=== PATIENT | female | born 1985 | race Caucasian/White ===

== ENCOUNTER → 2017-11-26 16:30 | Outpatient (CLI) | payer OTHER, SELFPAY ==
[2017-11-27 18:43] LABS: Strep Grp B PCR POS for Grp B Strep
== END ==
PROVIDERS: PCP Obstetrics & Gynecology; Visit Provider Obstetrics & Gynecology
DX: Z34.83 Encounter for supervision of other normal pregnancy, third trimester (principal)
CPT/HCPCS: 87653

== ENCOUNTER 2017-12-12 00:50 | Inpatient (IN) | payer OTHER, SELFPAY ==
[2017-12-12] MEDS: LACTATED RINGERS 1,000 ML 100 ML IV (01:30)
[2017-12-12] MEDS: PENICILLIN G POTASSIUM 5,000,000 UNIT in DEXTROSE 5% IN WATER 250 ML IV (01:35)
[2017-12-12 02:04] LABS: Add Manual Diff / Slide Review NO; Basophils Percent Auto 0.5 % (0-2); Eosinophils Percent Auto 1.3 % (2-4); Hematocrit 37.2 % (36-46); Hemoglobin 12.7 g/dL (12.0-16.0); Lymphocytes Percent Auto 19.1 % (25-40); Mean Corpuscular HGB Conc 34.1 % (30-36); Mean Corpuscular Hemoglobin 30.2 PG (26-34); Mean Corpuscular Volume 88.4 fL (80-100); Monocytes Percent Auto 9.4 % (3-14); Neutrophils Percent Auto 69.7 % (50-75); Platelet Count 227 X10^3/uL (150-400); Red Cell Distribution Width 13.4 % (11.6-14.8); White Blood Cell Count 9.1 X10^3/uL (4.5-11.0)
[2017-12-12 02:05] LABS: Neutrophils Absolute Auto 6400 /uL (3000-5900)
[2017-12-12 03:54] VITALS: BP 147/86
[2017-12-12] MEDS: PENICILLIN G POTASSIUM 3,000,000 UNIT/50 ML FROZ.PIGGY 100 UNIT IV ×2 (04:28→08:45)
--- NOTE | 2017-12-12 13:52 | PM.OBHP.1 ---
OB HPI History of Present Illness Chief complaint: Evaluation of Labor Narrative: Isabella Carroll is a 32-year-old G 2 P1 who comes in at 38 1/7 weeks gestation with spontaneous rupture of membranes on December 11 at approximately 11:00 p.m. patient did come in for antibiotics that she was GBS positive. Maternal blood type was AB positive, antibody negative, serology nonreactive, rubella immune, gonorrhea and Chlamydia negative, hepatitis B negative, hepatitis-C negative, GBS positive. Good care. Evaluation Evaluation Laboratory results: Laboratory Tests 12/12/17 12/12/17 01:35 01:35 WBC 9.1 RBC 4.20 Hgb 12.7 Hct 37.2 MCV 88.4 MCH 30.2 MCHC 34.1 RDW 13.4 Plt Count 227 Neut % (Auto) 69.7 Lymph % (Auto) 19.1 L Tra[place] % (Auto) 9.4 Eos % (Auto) 1.3 L Baso % (Auto) 0.5 Neut # (Auto) 6400 H Blood Type AB Positive Antibody Screen Negative [facility] Medical History Vaginal delivery (Acute) Social History Smoking Status: Never smoker Meds Home Medications Medication Instructions Recorded Confirmed Type 1 tab PO DAILY 12/12/17 12/12/17 History Allergies Allergy/AdvReac Type Severity Reaction Status Date / Time cephalexin [From Keflex] Allergy Mild Rash Verified 12/12/17 01:41 Review of Systems Review of Systems All systems reviewed & are unremarkable except as noted in HPI and below Exam Vital Signs (past 8 hours): GENERAL: Well-developed well-nourished woman in no acute distress. HEENT: Normocephalic, atraumatic, pupils equal and reactive to light and accommodation. Extraocular movements are intact. Tympanic membranes are clear without erythema. Neck supple, no lymphadenopathy. LUNG: Clear to auscultation bilaterally. No wheeze or crackles or rhonchi. No increased work in breathing. CV: Regular rate and rhythm. No murmurs rubs or gallops. AFFECT: Alert and oriented X3. Conversational and appropriate. Sterile vaginal exam: Not performed heart rate category 1. Contractions: Irregular to every 5-7 minutes Objective Labs Result Diagrams: 12/12/17 01:35 Labs: Laboratory Results - last 24 hr 12/12/17 12/12/17 01:35 01:35 WBC 9.1 RBC 4.20 Hgb 12.7 Hct 37.2 MCV 88.4 MCH 30.2 MCHC 34.1 RDW 13.4 Plt Count 227 Neut % (Auto) 69.7 Lymph % (Auto) 19.1 L Traill % (Auto) 9.4 Eos % (Auto) 1.3 L Baso % (Auto) 0.5 Neut # (Auto) 6400 H Blood Type AB Positive Antibody Screen Negative Assessment and Plan (1) Group B streptococcal infection during : Current visit: Yes Status: Acute (2) Term : Current visit: Yes Status: Acute (3) Group B Streptococcus carrier, antepartum: Current visit: Yes Status: Deleted Plan: Plan: 1. Start IV antibiotics for GBS positive status. 2. Monitor contractions. When patient becomes more active will check cervix. 3. Anticipate spontaneous vaginal delivery
--- NOTE | 2017-12-12 14:02 | PM.OBPRVD ---
Narrative: Patient is a 32-year-old who presented in after spontaneous rupture of membranes at term. Patient reports that her membranes ruptured at approximately 2330. She presented to Labor and delivery shortly thereafter to initiate GBS prophylaxis. Patient received 3 doses prior to delivery, none before rupture of membranes. Fluid clear. Patient labored without event, and at 1258 patient began stage II of labor. Patient pushed for a total of 10 min, and successfully delivered a healthy term female with Apgars of 6 and 8. Patient delivered in the knee chest position. Once delivery of the head, it was noted that the had a triple nuchal cord which was clamped and cut on the perineum. Infant was placed in maternal arms. Patient sustained minimal trauma to the perineum and no repair was required. Placenta delivered at 1:30 p.m. intact. Estimated blood loss 350 mL Patient tolerated the procedure well and infant was doing well at the time of this dictation.
[2017-12-13 06:05] LABS: Hematocrit 37.5 % (36-46); Hemoglobin 12.8 g/dL (12.0-16.0)
[2017-12-13] MEDS: DOCUSATE 250 MG CAPSULE PO (11:29)
--- NOTE | 2017-12-17 12:03 | P.DS_ITS ---
Discharge Providers Date of admission: 12/12/17 00:50 Primary care physician: Jessica Powell MD Consults: 12/12/17 13:48 Consult to Car Retarder Operator Routine Comment: Discharge provider: Jsesica Powell MD Discharge Date: 12/13/17 Summary Date Patient Seen: 12/13/17 Time Patient Seen: 07:45 Hospital Course: Patient presented with spontaneous rupture of membranes on 12/11/2017. By the morning of 12/12/2017 patient progressed in the labor. She had a spontaneous vaginal delivery without complication. Her course was unremarkable Discharge Diagnosis (1) Group B streptococcal infection during : Status: Acute (2) Term : Status: Acute (3) Group B Streptococcus carrier, antepartum: Status: Deleted Time Spent with Patient Total time spent providing and/or coordinating discharge services: Objective Labs Result Diagrams: 12/13/17 05:50 Discharge Plan Discharge Plan Patient Disposition: Home, Self-Care Discharge Med Rec/Prescriptions Prescriptions: No Action 1 tab tablet 1 tab PO DAILY RF: 0 Follow up/Referrals: Jessica Powell MD [Primary Care Provider] - 6 Weeks Provider Discharge Instructions Diet: Diet as Tolerated Activity: No intercourse Wound Care Report to your healthcare provider any signs of infection, such as:: chills, fever, increased pain and unusual drainage Visit Report/Discharge Packet Instructions: Depression Visit Report Forms: Stroke Signs & Symptoms Discharge Data Primary Care Provider: Jessica Powell Attending Provider: Jessica Powell Admit Date/Time: 12/12/17 00:50 Discharges patient from system. Discharge Date/Time: 12/13/17 13:55
== END 2017-12-13 13:55 | disposition home or self-care (01) | DRG 775 ==
PROVIDERS: Admitting Provider Family Medicine; PCP Obstetrics & Gynecology; Visit Provider Obstetrics & Gynecology
DX: O99.824 Streptococcus B carrier state complicating childbirth (principal); Z3A.38 38 weeks gestation of pregnancy; Z37.0 Single live birth
CPT/HCPCS: 36415; 59025; 59050; 59400; 59409; 84112; 85014; 85018; 85025; 86850; 86900; 86901; G0378; G0379; J2540